=== PATIENT | male | born 1985 | race Caucasian/White ===

== ENCOUNTER 2018-05-02 21:59 | Emergency (ER) | payer MEDICAID | END 2018-05-02 22:07 | LOC: ED 22:05 | DX: Z02.9 Encounter for administrative examinations, unspecified (principal) ==

== ENCOUNTER 2019-09-28 18:45 | Emergency (ER) | payer SELFPAY ==
[~2019-09-28] VITALS: Ht 172.7 cm; Wt 84.5 kg
[2019-09-28 18:47] VITALS: BP 120/77
[2019-09-28] MEDS ORDERED: HYDROcodone/APAP 5/325 TABLET PO ONE (20:30)
[2019-09-28] MEDS ORDERED: HYDROcodone/APAP 5/325 TABLET ONE (20:44)
--- NOTE | 2019-09-28 20:46 | NUR ---
Medicated per emar for left mouth pain at 07/24 rfp writer comfortable discharging patient near narcotic administration as patient in the care of significant other
== END 2019-09-28 20:52 | disposition home or self-care (01) ==
LOC: ED 20:46
DX: K04.7 Periapical abscess without sinus (principal); K02.9 Dental caries, unspecified
CPT/HCPCS: 99283

== ENCOUNTER 2019-11-27 18:28 | Emergency (ER) | payer OTHER ==
[~2019-11-27] VITALS: Ht 172.7 cm; Wt 87.4 kg
[2019-11-27 18:48] VITALS: BP 110/73
[2019-11-27] MEDS ORDERED: KETOROLAC 30 MG/1 ML ONE (19:25)
[2019-11-27] MEDS ORDERED: KETOROLAC 30 MG/1 ML IM/IV ONE (19:30)
[2019-11-27 19:37] LABS: BASOPHILS # (AUTO) 0.03 x10^3/uL (0-0.1); BASOPHILS % (AUTO) 0 % (0-1); EOSINOPHILS # (AUTO) 0.21 x10^3/uL (0-0.4); EOSINOPHILS % (AUTO) 2 % (1-7); LYMPHOCYTES # (AUTO) 4.03 x10^3/uL (1-3.4); LYMPHOCYTES % (AUTO) 43 % (22-44); MD NO; MEAN CORPUSCULAR HEMOGLOBIN 29.7 pg (27.5-34.5); MEAN CORPUSCULAR HGB CONC 33.4 g/dL (33.2-36.2); MEAN PLATELET VOLUME 8.1 fL (7.4-10.4); MONOCYTES # (AUTO) 0.63 x10^3/uL (0.2-0.8); MONOCYTES % (AUTO) 7 % (2-9); NEUTROPHILS # (AUTO) 4.53 x10^3/uL (1.8-6.8); NEUTROPHILS % (AUTO) 48 % (42-75); PLATELET COUNT 218 x10^3/uL (130-400); RED BLOOD COUNT 5.08 x10^6/uL (4.38-5.82); RED CELL DISTRIBUTION WIDTH 13.4 % (9.4-14.8)
[2019-11-27 19:43] LABS: ALBUMIN 3.7 g/dL (3.4-5.0); ANION GAP 6 mmol/L (5-15); CALCIUM 8.5 mg/dL (8.5-10.1); CHLORIDE 113 mmol/L (98-107); CREATININE 0.88 mg/dL (0.7-1.3)
[2019-11-27 19:47] LABS: TROPONIN I < 0.015 ng/mL (0.000-0.045)
[2019-11-27] MEDS ORDERED: PHENYLEPHRINE OPHTH 2.5%, 2.5ML EACHEYE ONE (20:30)
[2019-11-27] MEDS ORDERED: ACYCLOVIR 800 MG TABLET PO ONE (20:30)
[2019-11-27] MEDS ORDERED: TROPICAMIDE OPHTH 1%, 15ML OP ONE (20:30)
--- NOTE | 2019-11-27 20:52 | NUR ---
TASK RN: PT REPORTS IMPROVED S/S. DC EDUCATION PROVIDED, PT DEMONSTRATES UNDERSTANDING. PT AMBULATED STEADILY TO DC WITH RN AND FRIEND.
== END 2019-11-27 20:54 | disposition home or self-care (01) ==
LOC: ED 20:45
DX: R07.89 Other chest pain (principal); F17.210 Nicotine dependence, cigarettes, uncomplicated; K21.9 Gastro-esophageal reflux disease without esophagitis
CPT/HCPCS: 36415; 71046; 80048; 82040; 84484; 85025; 93005; 96372; 99284; J1885